=== PATIENT | male | born 1995 | race Caucasian/White ===

== ENCOUNTER 2022-08-11 16:19 | Emergency (ER) | payer MEDICAID ==
[~2022-08-11] VITALS: Ht 177.8 cm; Wt 133.8 kg
[~2022-08-11 16:19] MED LIST: ATARAX,VISTARIL50 MG PO; ESCITALOPRAM OX10 MG PO; HYDROXYZINE PAM25 MG PO; KENALOG 0.1%80 GM T; LAMOTRIGINE25 M1 PO; PROTONIX40 MG PO; VISTARIL25 M2 PO; [UNRECOGNIZED DRUG - OTHER] TP
== END 2022-08-11 17:11 | disposition home or self-care (01) ==
LOC: ED 16:19
DX: S60.452A Superficial foreign body of right middle finger, initial encounter (principal); Z88.2 Allergy status to sulfonamides; Z91.018 Allergy to other foods; W22.8XXA Striking against or struck by other objects, initial encounter; Y93.89 Activity, other specified; Y92.009 Unspecified place in unspecified non-institutional (private) residence as the place of occurrence of the external cause; Y99.8 Other external cause status

== ENCOUNTER 2025-02-02 21:08 | Emergency (ER) | payer OTHER ==
[~2025-02-02] VITALS: Ht 175.2 cm; Wt 106.6 kg
[2025-02-02] MEDS ORDERED: PANTOPRAZOLE SO20 MG PO (21:18)
[2025-02-02] MEDS ORDERED: PROGESTERONE100 M2 PO (21:18)
[2025-02-02] MEDS ORDERED: SODIUM CHLORIDE 0.9% 1,000 ML IV ONE (21:35)
[2025-02-02] MEDS ORDERED: Ondansetron Hydrochloride 4 MG/2 ML VIAL IV ONE (21:35)
[2025-02-02 22:24] LABS: BASO # 0.1 10*3/uL (0.0-0.1); BASO % 0.8 % (0.0-1.0); EOS # 0.1 10*3/uL (0.0-0.4); EOS % 1.3 % (1.0-4.0); MEAN CELL VOLUME 93.6 fl (80.0-94.0); MEAN CORPUSCULAR HGB 30.7 pg (27.0-31.0); MEAN PLATELET VOLUME 11.5 fl (9.6-12.3); MONO # 0.6 10*3/uL (0.1-1.0); MONO % 7.6 % (3.0-9.0); NEUT # 4.4 10*3/uL (2.3-7.9); NEUT % 58.8 % (47.0-73.0); NUCLEATED RED BLOOD CELL 0.0 % (0.0-0.0); NUCLEATED RED BLOOD CELL 0.0 10*3/uL (0.0-0.0); PLATELET COUNT AUTOMATED 188 10*3/uL (130-400); RED CELL DISTRI WIDTH 13.3 % (0-14.5)
[2025-02-02 22:40] LABS: BUN 14 mg/dl (9-23)
[2025-02-02] MEDS ORDERED: MAGNESIUM CITRATE 296 ML BOT PO ONE (23:30)
== END 2025-02-02 23:43 | disposition home or self-care (01) ==
LOC: ED 21:08
PROVIDERS: Nurse Practitioner Family
DX: K59.00 Constipation, unspecified (principal); K21.9 Gastro-esophageal reflux disease without esophagitis; Z88.2 Allergy status to sulfonamides